=== PATIENT | male | born 1950 | race Caucasian/White ===

== ENCOUNTER → 2016-08-10 | Outpatient (CLI) | payer OTHER ==
[~2016-08-10] MED LIST: ASPI81TA85 PO; CARV6.25 PO; LISI10TA4 PO; PARO40TA PO; PRAV40TA2 PO; VITA10006 PO; VITA2000 PO
--- NOTE | 2016-08-13 11:46 | REP ---
Pain. COMPARISON: None. There is mild tricompartmental marginal osteophytosis and mild patellofemoral joint space narrowing. Calcifications are seen in each medial and lateral compartment. There is no acute fracture or dislocation. IMPRESSION: 1. Chronic changes as described above. 2. Meniscal calcifications likely secondary to either calcified degenerative meniscal changes or calcium pyrophosphate deposition disorder. This distinction needs to be made on a clinical basis. Signed by Zach Baptiste DO 08/13/2016 11:54 A
== END ==
LOC: M ADAMS 12:11
PROVIDERS: ATTEND Physician Assistant Medical
DX: M25.561 Pain in right knee (principal)

== ENCOUNTER → 2017-06-10 | Outpatient (REF) | payer OTHER ==
[2017-06-14 00:10] LABS: ACETYLCHOLINE RCPTOR BINDING A < 0.03 nmol/L (0.00-0.24)
== END ==
LOC: M LAB REF 19:59
DX: H02.402 Unspecified ptosis of left eyelid (principal)
CPT/HCPCS: 83519

== ENCOUNTER → 2018-06-10 | Outpatient (CLI) | payer OTHER ==
[~2018-06-10] MED LIST changes: -PARO40TA PO; +PARO40TA2 PO
--- NOTE | 2018-06-11 03:47 | REP ---
Clinical: Shortness of breath . Comparison: 03/03/2007 . Technique: PA and lateral. Findings: The mediastinum and cardiac silhouette are normal. The lung camacho are clear and without acute consolidation, effusion, or pneumothorax. The skeletal structures are intact and normal. Impression: 1. No acute cardiopulmonary process. Electronically Signed by Hermes Landaverde MD 06/11/2018 03:39 A
== END ==
LOC: M ADAMS 14:09
PROVIDERS: ATTEND Nurse Practitioner Family
DX: R06.02 Shortness of breath (principal)

== ENCOUNTER → 2018-08-24 | Outpatient (REF) | payer OTHER ==
[2018-08-24 12:16] LABS: INR 1.24; PROTHROMBIN TIME 15.8 SECONDS (12.1-14.4)
== END ==
LOC: M LAB REF 11:48
PROVIDERS: ATTEND Internal Medicine
DX: I42.9 Cardiomyopathy, unspecified (principal); I23.6 Thrombosis of atrium, auricular appendage, and ventricle as current complications following acute myocardial infarction

== ENCOUNTER → 2018-08-31 | Outpatient (REF) | payer OTHER ==
[2018-08-31 13:15] LABS: INR 1.7; PROTHROMBIN TIME 20.3 SECONDS (12.1-14.4)
== END ==
LOC: M LAB REF 12:21
PROVIDERS: ATTEND Internal Medicine
DX: Z79.01 Long term (current) use of anticoagulants (principal)

== ENCOUNTER → 2018-09-07 | Outpatient (REF) | payer OTHER ==
[2018-09-07 13:36] LABS: INR 2.01; PROTHROMBIN TIME 23.1 SECONDS (12.1-14.4)
== END ==
LOC: M LAB REF 12:25
PROVIDERS: ATTEND Internal Medicine
DX: Z79.01 Long term (current) use of anticoagulants (principal)

== ENCOUNTER → 2018-10-09 | Outpatient (REF) | payer OTHER ==
[2018-10-09 12:42] LABS: INR 1.53; PROTHROMBIN TIME 18.6 SECONDS (12.1-14.4)
== END ==
LOC: M LAB REF 12:11
PROVIDERS: ATTEND Internal Medicine
DX: Z79.01 Long term (current) use of anticoagulants (principal)

== ENCOUNTER → 2018-10-21 | Outpatient (REF) | payer OTHER ==
[2018-10-21 13:22] LABS: INR 2.01; PROTHROMBIN TIME 23.1 SECONDS (12.1-14.4)
== END ==
LOC: M LAB REF 12:48
PROVIDERS: ATTEND Internal Medicine
DX: Z79.01 Long term (current) use of anticoagulants (principal)

== ENCOUNTER → 2018-10-28 | Outpatient (REF) | payer OTHER ==
[2018-10-28 12:46] LABS: INR 2.12; PROTHROMBIN TIME 24.1 SECONDS (12.1-14.4)
== END ==
LOC: M LAB REF 12:08
PROVIDERS: ATTEND Internal Medicine
DX: Z79.01 Long term (current) use of anticoagulants (principal)

== ENCOUNTER → 2018-11-11 | Outpatient (REF) | payer OTHER ==
[2018-11-11 14:45] LABS: INR 1.97; PROTHROMBIN TIME 22.8 SECONDS (12.1-14.4)
== END ==
LOC: M LAB REF 14:23
PROVIDERS: ATTEND Internal Medicine
DX: Z79.01 Long term (current) use of anticoagulants (principal)

== ENCOUNTER → 2018-11-25 | Outpatient (REF) | payer MEDICARE ==
[2018-11-25 13:40] LABS: INR 1.73
== END ==
LOC: M LAB REF 12:50
PROVIDERS: ATTEND Internal Medicine
DX: Z79.01 Long term (current) use of anticoagulants (principal); I23.6 Thrombosis of atrium, auricular appendage, and ventricle as current complications following acute myocardial infarction

== ENCOUNTER → 2018-12-09 | Outpatient (REF) | payer MEDICARE ==
[2018-12-09 12:56] LABS: INR 1.97; PROTHROMBIN TIME 22.2 SECONDS (11.8-14.0)
== END ==
LOC: M LAB REF 12:36
PROVIDERS: ATTEND Internal Medicine
DX: Z79.01 Long term (current) use of anticoagulants (principal)

== ENCOUNTER → 2018-12-23 | Outpatient (REF) | payer MEDICARE ==
[2018-12-23 13:00] LABS: INR 1.9; PROTHROMBIN TIME 21.6 SECONDS (11.8-14.0)
== END ==
LOC: M LAB REF 12:33
PROVIDERS: ATTEND Internal Medicine
DX: Z79.01 Long term (current) use of anticoagulants (principal)

== ENCOUNTER → 2019-01-06 | Outpatient (REF) | payer MEDICARE ==
[2019-01-06 13:06] LABS: INR 2.26; PROTHROMBIN TIME 24.7 SECONDS (11.8-14.0)
== END ==
LOC: M LAB REF 12:47
PROVIDERS: ATTEND Internal Medicine
DX: Z79.01 Long term (current) use of anticoagulants (principal)

== ENCOUNTER → 2019-01-20 | Outpatient (REF) | payer MEDICARE ==
[2019-01-20 12:56] LABS: INR 2.24; PROTHROMBIN TIME 24.6 SECONDS (11.8-14.0)
== END ==
LOC: M LAB REF 12:22
PROVIDERS: ATTEND Internal Medicine
DX: Z79.01 Long term (current) use of anticoagulants (principal); I23.6 Thrombosis of atrium, auricular appendage, and ventricle as current complications following acute myocardial infarction

== ENCOUNTER → 2019-02-03 | Outpatient (REF) | payer MEDICARE ==
[2019-02-03 13:56] LABS: INR 2.22; PROTHROMBIN TIME 24.4 SECONDS (11.8-14.0)
== END ==
LOC: M LAB REF 13:00
PROVIDERS: ATTEND Internal Medicine
DX: I23.6 Thrombosis of atrium, auricular appendage, and ventricle as current complications following acute myocardial infarction (principal); Z79.01 Long term (current) use of anticoagulants

== ENCOUNTER → 2019-02-17 | Outpatient (REF) | payer MEDICARE ==
[2019-02-17 14:59] LABS: INR 1.85; PROTHROMBIN TIME 21.1 SECONDS (11.8-14.0)
== END ==
LOC: M LAB REF 14:26
PROVIDERS: ATTEND Internal Medicine
DX: Z79.01 Long term (current) use of anticoagulants (principal); I23.6 Thrombosis of atrium, auricular appendage, and ventricle as current complications following acute myocardial infarction

== ENCOUNTER → 2022-05-22 | Outpatient (CLI) | payer MEDICARE ==
[~2022-05-22] MED LIST changes: -ASPI81TA85 PO; +ASPI81TA86 PO; +LISI10TA22 PO; -LISI10TA4 PO
== END ==
LOC: M WUC 14:45
PROVIDERS: ATTEND Internal Medicine
DX: R07.9 Chest pain, unspecified (principal)

== ENCOUNTER → 2022-11-18 | Outpatient (CLI) | payer MEDICARE | LOC: M WUC 11:35 | PROVIDERS: ATTEND Internal Medicine | DX: R10.31 Right lower quadrant pain (principal); M85.89 Other specified disorders of bone density and structure, multiple sites ==